=== PATIENT | female | born 1965 | race Caucasian/White ===

== ENCOUNTER 2019-08-31 11:30 | Day surgery (SDC) | payer MEDICAID ==
[~2019-08-31] VITALS: Ht 160 cm; Wt 96.3 kg
[~2019-08-31 11:30] MED LIST: AMLO5TAB9 PO; ASPI81 PO; ATOR40TA28 PO; BENA20TA11 PO; INSNOV SQ; INSU100V36 SQ; METF-960 PO; PANT40TA25 PO; SODIUM CHLORIDE 0.9% 1,000 ML IV ONE
[2019-08-31] MEDS ORDERED: SODIUM CHLORIDE 0.9% 1,000 ML IV ONE (12:00)
[2019-08-31] MEDS ORDERED: LANS30 PO (12:06)
[2019-08-31 12:09] LABS: GLUCOMETER DEV NAME(LOC) SDS.; GLUCOSE,POINT OF CARE 108 MG/DL (70-110)
== END 2019-08-31 16:50 | disposition home or self-care (01) ==
LOC: EDBD → SURGERY 11:30
PROVIDERS: ATTEND Student in an Organized Health Care Education/Training Program
DX: R10.13 Epigastric pain (principal); K21.0 Gastro-esophageal reflux disease with esophagitis; K44.9 Diaphragmatic hernia without obstruction or gangrene; E11.9 Type 2 diabetes mellitus without complications; E66.01 Morbid (severe) obesity due to excess calories; Z68.37 Body mass index [BMI] 37.0-37.9, adult; Z98.890 Other specified postprocedural states; Z79.899 Other long term (current) drug therapy; Z79.4 Long term (current) use of insulin; Z98.51 Tubal ligation status
CPT/HCPCS: 43239; 82962; 88305; 88312; 88313; 93005; C1769; J7030

== ENCOUNTER 2019-09-21 10:11 | Day surgery (SDC) | payer MEDICAID ==
[~2019-09-21] VITALS: Ht 165.1 cm; Wt 96.4 kg
[~2019-09-21 10:11] MED LIST changes: +LANS30 PO
[2019-09-21 10:57] LABS: GLUCOMETER DEV NAME(LOC) SDS.; GLUCOSE,POINT OF CARE 108 MG/DL (70-110)
[2019-09-21] MEDS ORDERED: PROPOFOL 1% 20 ML VIAL IVP ONE (12:00)
[2019-09-21] MEDS ORDERED: LIDOCAINE/PF 2% 5 ML VIAL INJ ONE (12:00)
== END 2019-09-21 14:20 | disposition home or self-care (01) ==
LOC: SURGERY 10:11 → EDBD 12:00 → SURGERY 14:20
PROVIDERS: ATTEND Student in an Organized Health Care Education/Training Program
DX: R19.7 Diarrhea, unspecified (principal); D12.5 Benign neoplasm of sigmoid colon; K66.0 Peritoneal adhesions (postprocedural) (postinfection); K56.2 Volvulus; K57.30 Diverticulosis of large intestine without perforation or abscess without bleeding; K64.8 Other hemorrhoids; I10 Essential (primary) hypertension; E11.9 Type 2 diabetes mellitus without complications; E66.01 Morbid (severe) obesity due to excess calories; Z68.35 Body mass index [BMI] 35.0-35.9, adult
CPT/HCPCS: 45331; 82962; 88305; 93005; C1769; J2704; J3490; J7030